=== PATIENT | male | born 1975 | race African-American/Black ===

== ENCOUNTER 2020-11-22 17:50 | Emergency (ER) | payer OTHER ==
[~2020-11-22] VITALS: Ht 188 cm; Wt 111.1 kg
[2020-11-22] MEDS ORDERED: HYDCHL25 (17:59)
== END 2020-11-22 20:40 | disposition home or self-care (01) ==
LOC: ER 17:50
DX: F19.10 Other psychoactive substance abuse, uncomplicated (principal); F11.10 Opioid abuse, uncomplicated; F15.10 Other stimulant abuse, uncomplicated; I10 Essential (primary) hypertension
CPT/HCPCS: 93005; 93010; 99284-25